=== PATIENT | male | born 1960 | race Caucasian/White ===

== ENCOUNTER 2024-05-01 06:22 | Day surgery (SDC) | payer OTHER, SELFPAY | END 2024-05-01 14:26 | disposition home or self-care (01) | LOC: GI 06:22 | PROVIDERS: ATTENDING PHYSICIAN Internal Medicine Gastroenterology | DX: Z12.11 Encounter for screening for malignant neoplasm of colon (principal); K57.30 Diverticulosis of large intestine without perforation or abscess without bleeding; K64.8 Other hemorrhoids; D12.2 Benign neoplasm of ascending colon | CPT/HCPCS: 45385; 88305 ==